=== PATIENT | female | born 1990 | race Two or more races ===

== ENCOUNTER 2018-10-09 14:09 | Outpatient (CLI) | payer BC ==
[2018-10-09 15:22] LABS: ADD MAN DIFF? NO
[2018-10-09 15:30] LABS: BASOPHILS % 0.5 % (0.0-2.0); EOSINOPHILS # 0.3 10^3/ul (0.0-0.5); EOSINOPHILS % 3.6 % (0.0-7.0); HEMATOCRIT 34.2 % (37.0-47.0); LYMPHOCYTES # 2.1 10^3/ul (0.8-2.9); LYMPHOCYTES % 27.1 % (15.0-51.0); MEAN CORPUSCULAR HEMOGLOBIN 26.3 pg (29.0-33.0); MEAN CORPUSCULAR HGB CONC 32.2 g/dl (32.0-37.0); MEAN CORPUSCULAR VOLUME 81.6 fl (82.0-101.0); MEAN PLATELET VOLUME 10.6 fl (7.4-10.4); MONOCYTE # 0.6 10^3/ul (0.3-0.9); MONOCYTES % 7.5 % (0.0-11.0); NEUTROPHIL # 4.6 10^3/ul (1.6-7.5); NEUTROPHILS % 60.2 % (39.0-77.0); PLATELET COUNT 279 10^3/UL (140-415); RED BLOOD COUNT 4.19 10^6/ul (4.20-5.40); RED CELL DISTRIBUTION WIDTH 15.6 % (11.5-14.5)
[2018-10-09 15:30] LABS: WHITE BLOOD COUNT 7.6 10^3/ul (4.8-10.8)
[2018-10-09 15:42] LABS: ALANINE AMINOTRANSFERASE 118 IU/L (13-69); ALBUMIN 3.5 g/dl (3.3-4.9); ALBUMIN/GLOBULIN RATIO 0.85; ALKALINE PHOSPHATASE 240 IU/L (42-121); AMYLASE 63 U/L (11-123); ANION GAP 10 (5-13); ASPARTATE AMINO TRANSFERASE 50 IU/L (15-46); BILIRUBIN,INDIRECT 0.4 mg/dl (0-1.1); BILIRUBIN,TOTAL 0.4 mg/dl (0.2-1.3); BLOOD UREA NITROGEN 8 mg/dl (7-20); CALCIUM 9.5 mg/dl (8.4-10.2); CARBON DIOXIDE 22 mmol/L (21-31); CHLORIDE 107 mmol/L (97-110); CREATININE 0.53 mg/dl (0.44-1.00); Estimated GFR > 60 mL/min (>60); GLUCOSE 109 mg/dl (70-220); LIPASE 42 U/L (23-300); POTASSIUM 3.6 mmol/L (3.5-5.1); SODIUM 139 mmol/L (135-144); TOTAL PROTEIN 7.6 g/dl (6.1-8.1)
[2018-10-09 16:42] LABS: ADD UMIC YES; UR ASCORBIC ACID NEGATIVE (NEGATIVE); UR BACTERIA FEW /HPF (NONE SEEN); UR BILIRUBIN (Dip) NEGATIVE (NEGATIVE); UR BLOOD (Dip) NEGATIVE (NEGATIVE); UR CLARITY SLIGHTLY CLOUDY (CLEAR); UR COLOR YELLOW (YELLOW); UR GLUCOSE (Dip) NEGATIVE (NEGATIVE); UR KETONES (Dip) 1+ mg/dL (NEGATIVE); UR LEUKOCYTE ESTERASE (Dip) 2+ Leu/ul (NEGATIVE); UR MUCUS FEW /HPF (NONE SEEN); UR NITRITE (Dip) NEGATIVE (NEGATIVE); UR RBC 1 /HPF (0-5); UR SPECIFIC GRAVITY (Dip) 1.019 (1.003-1.030); UR SQUAMOUS EPITHELIAL CELL FEW /HPF (FEW); UR TOTAL PROTEIN (Dip) NEGATIVE (NEGATIVE); UR UROBILINOGEN (Dip) NEGATIVE (NEGATIVE); UR WBC 6 /HPF (0-5)
[2018-10-09] MEDS: URSODIOL 300 MG CAP PO (17:27)
[2018-10-09] MEDS: LACTATED RINGER'S 1,000 ML IV (17:27)
[2018-10-09] MEDS: ONDANSETRON 4 MG INJ IV (18:46)
[2018-10-09] MEDS: DIPHENHYDRAMINE 50 MG CAP PO (19:29)
== END 2018-10-09 22:00 | disposition home or self-care (01) ==
LOC: OBT 14:09 → L-D 14:11 → OBT 22:00
DX: O21.2 Late vomiting of pregnancy (principal); O26.613 Liver and biliary tract disorders in pregnancy, third trimester; K83.1 Obstruction of bile duct; Z3A.34 34 weeks gestation of pregnancy
CPT/HCPCS: 76705; 76817; 76818; 80053; 81001; 82150; 83690; 85025

== ENCOUNTER 2018-10-16 23:21 | Outpatient (CLI) | payer BC ==
[2018-10-17] MEDS: DIPHENHYDRAMINE 25 MG CAP PO (00:22)
[2018-10-17] MEDS: BETAMET NA PHOS/AC(6 MG/ML) 2 ML INJ SYG IM (00:42)
== END 2018-10-17 01:20 | disposition home or self-care (01) ==
LOC: OBT 23:21 → L-D 23:21
DX: O26.613 Liver and biliary tract disorders in pregnancy, third trimester (principal); K83.1 Obstruction of bile duct; O24.414 Gestational diabetes mellitus in pregnancy, insulin controlled; Z3A.35 35 weeks gestation of pregnancy
CPT/HCPCS: 76818; 96372

== ENCOUNTER 2018-10-17 23:12 | Outpatient (CLI) | payer BC ==
[2018-10-18] MEDS: BETAMET NA PHOS/AC(6 MG/ML) 2 ML INJ SYG IM (00:48)
== END 2018-10-18 01:00 | disposition home or self-care (01) ==
LOC: OBT 10-18 01:00 → L-D 23:13
DX: O26.613 Liver and biliary tract disorders in pregnancy, third trimester (principal); K83.1 Obstruction of bile duct; Z3A.35 35 weeks gestation of pregnancy
CPT/HCPCS: J0702

== ENCOUNTER 2018-10-20 16:51 | Inpatient (IN) | payer BC ==
[2018-10-20] MEDS ORDERED: CARBOPROST 250 MCG INJ IM (17:30)
[2018-10-20] MEDS ORDERED: MISOPROSTOL 200 MCG TAB PR (17:30)
[2018-10-20] MEDS ORDERED: IBUPROFEN 600 MG TAB PO (17:30)
[2018-10-20] MEDS ORDERED: OXYTOCIN 30 UNITS/LR 500 ML IV ×2 (17:30)
[2018-10-20] MEDS ORDERED: METHYLERGONOVINE 0.2 MG INJ IM (17:30)
[2018-10-20] MEDS ORDERED: LIDOCAINE 1% (MPF) 30 ML INJ INJ (17:30)
[2018-10-20] MEDS: LACTATED RINGER'S 1,000 ML IV (18:43)
[2018-10-20 19:22] LABS: ADD MAN DIFF? NO
[2018-10-20 19:29] LABS: WHITE BLOOD COUNT 9.2 10^3/ul (4.8-10.8)
[2018-10-20 19:29] LABS: BASOPHIL # 0.1 10^3/ul (0.0-0.1); BASOPHILS % 0.7 % (0.0-2.0); EOSINOPHILS # 0.2 10^3/ul (0.0-0.5); EOSINOPHILS % 2.4 % (0.0-7.0); HEMATOCRIT 36.4 % (37.0-47.0); HEMOGLOBIN 11.2 g/dl (12.0-16.0); LYMPHOCYTES # 2.4 10^3/ul (0.8-2.9); LYMPHOCYTES % 26.3 % (15.0-51.0); MEAN CORPUSCULAR HEMOGLOBIN 25.4 pg (29.0-33.0); MEAN CORPUSCULAR HGB CONC 30.8 g/dl (32.0-37.0); MEAN CORPUSCULAR VOLUME 82.5 fl (82.0-101.0); MEAN PLATELET VOLUME 10.4 fl (7.4-10.4); MONOCYTE # 0.9 10^3/ul (0.3-0.9); MONOCYTES % 9.7 % (0.0-11.0); NEUTROPHIL # 5.5 10^3/ul (1.6-7.5); NEUTROPHILS % 59.3 % (39.0-77.0); NUCLEATED RED BLOOD CELLS% 0.2 /100WBC (0.0-0.0); PLATELET COUNT 287 10^3/UL (140-415); RED BLOOD COUNT 4.41 10^6/ul (4.20-5.40); RED CELL DISTRIBUTION WIDTH 15.7 % (11.5-14.5)
[2018-10-20 19:53] LABS: INR 0.93; PARTIAL THROMBOPLASTIN TIME 20.1 Sec (23.0-35.0); PROTIME 12.6 Sec (11.9-14.9)
[2018-10-20] MEDS: AMPICILLIN 2 GM/NS (PMX) 100 ML IV (20:14)
[2018-10-20] MEDS: MISOPROSTOL 50 MCG CAPSULE PO (20:14)
[2018-10-20 20:16] LABS: HEPATITIS B SURFACE ANTIGEN NEGATIVE (NEGATIVE)
[2018-10-20] MEDS: URSODIOL 300 MG CAP PO (21:13)
[2018-10-21] MEDS: AMPICILLIN 1 GM/NS (PMX) 50 ML IV ×7 (00:22→22:56)
[2018-10-21] MEDS: MISOPROSTOL 50 MCG CAPSULE PO ×6 (00:22→17:00)
[2018-10-21] MEDS: LACTATED RINGER'S 1,000 ML IV ×4 (02:53→19:41)
[2018-10-21] MEDS: BUTORPHANOL 2 MG INJ IV (05:13)
[2018-10-21] MEDS: URSODIOL 300 MG CAP PO ×3 (09:19→23:17)
[2018-10-21] MEDS ORDERED: FENTAnyl 2MCG/ML-ROPIV 0.2% 100 ML (12:23)
[2018-10-21] MEDS ORDERED: NALOXONE (0.4 MG/ML) INJ IV (12:30)
[2018-10-21] MEDS ORDERED: DIPHENHYDRAMINE 50 MG INJ IV (12:30)
[2018-10-21] MEDS ORDERED: ONDANSETRON 4 MG INJ IV (12:30)
[2018-10-21] MEDS: OXYTOCIN 30 UNITS/LR 500 ML IV (13:03)
[2018-10-21 19:22] LABS: RAPID PLASMA REAGIN NONREACTIVE (NR)
[2018-10-21] MEDS: FENTAnyl 2MCG/ML-ROPIV 0.2% 100 ML BAG EPI (22:09)
[2018-10-22] MEDS: AMPICILLIN 1 GM/NS (PMX) 50 ML IV (03:00)
[2018-10-22] MEDS: MINERAL OIL LIGHT 10 ML VIAL TOP (03:20)
[2018-10-22] MEDS: OXYTOCIN 30 UNITS/LR 500 ML IV (03:38)
[2018-10-22] MEDS: LACTATED RINGER'S 1,000 ML IV* ×2 (06:08→07:21)
[2018-10-22] MEDS ORDERED: CARBOPROST 250 MCG INJ IM (06:30)
[2018-10-22] MEDS ORDERED: MISOPROSTOL 200 MCG TAB PR (06:30)
[2018-10-22] MEDS ORDERED: OXYTOCIN 30 UNITS/LR 500 ML IV (06:30)
[2018-10-22] MEDS ORDERED: METHYLERGONOVINE 0.2 MG INJ IM (06:30)
[2018-10-22] MEDS: WITCH HAZEL/GLYCERIN PAD PR (08:11)
[2018-10-22] MEDS: DIBUCAINE 1% 30 GM OINT TOP ×2 (08:12→20:54)
[2018-10-22] MEDS: BENZOCAINE 20% 56 ML SPRAY TOP ×2 (08:12→20:54)
[2018-10-22] MEDS: SENNA/DOCUSATE NA (8.6MG/50MG) TAB PO ×2 (08:44→20:54)
[2018-10-22] MEDS: HYDROCODONE/APAP (5/325) TAB PO (10:40)
[2018-10-22] MEDS: IBUPROFEN 600 MG TAB PO ×3 (12:02→23:40)
[2018-10-23] MEDS: HYDROCODONE/APAP (5/325) TAB PO ×3 (03:33→23:23)
[2018-10-23] MEDS: IBUPROFEN 600 MG TAB PO ×4 (05:20→23:23)
[2018-10-23] MEDS: WITCH HAZEL/GLYCERIN PAD PR ×2 (08:24→21:25)
[2018-10-23] MEDS: BENZOCAINE 20% 56 ML SPRAY TOP ×2 (08:24→21:24)
[2018-10-23] MEDS: SENNA/DOCUSATE NA (8.6MG/50MG) TAB PO ×2 (08:24→21:24)
[2018-10-23 08:29] LABS: ADD MAN DIFF? NO
[2018-10-23 08:36] LABS: BASOPHIL # 0.1 10^3/ul (0.0-0.1); BASOPHILS % 0.6 % (0.0-2.0); EOSINOPHILS # 0.2 10^3/ul (0.0-0.5); HEMATOCRIT 32.4 % (37.0-47.0); HEMOGLOBIN 9.8 g/dl (12.0-16.0); LYMPHOCYTES # 3.2 10^3/ul (0.8-2.9); LYMPHOCYTES % 26.3 % (15.0-51.0); MEAN CORPUSCULAR HEMOGLOBIN 25.3 pg (29.0-33.0); MEAN CORPUSCULAR HGB CONC 30.2 g/dl (32.0-37.0); MEAN CORPUSCULAR VOLUME 83.7 fl (82.0-101.0); MEAN PLATELET VOLUME 10.7 fl (7.4-10.4); NEUTROPHIL # 7.5 10^3/ul (1.6-7.5); NEUTROPHILS % 62.2 % (39.0-77.0); PLATELET COUNT 276 10^3/UL (140-415); RED BLOOD COUNT 3.87 10^6/ul (4.20-5.40); RED CELL DISTRIBUTION WIDTH 15.9 % (11.5-14.5)
[2018-10-23 08:36] LABS: WHITE BLOOD COUNT 12.1 10^3/ul (4.8-10.8)
[2018-10-24] MEDS: ACETAMINOPHEN 325 MG TAB PO (04:29)
[2018-10-24] MEDS: HYDROCODONE/APAP (5/325) TAB PO (04:30)
[2018-10-24] MEDS: IBUPROFEN 600 MG TAB PO ×2 (05:44→12:49)
[2018-10-24] MEDS: SENNA/DOCUSATE NA (8.6MG/50MG) TAB PO (09:06)
[2018-10-24] MEDS: WITCH HAZEL/GLYCERIN PAD PR (09:06)
[2018-10-24] MEDS: BENZOCAINE 20% 56 ML SPRAY TOP (09:06)
[2018-10-24] MEDS: DIPHTH/TET/ACEL PERTUSS (ADULT) 0.5 ML VIAL IM* (14:29)
== END 2018-10-24 19:00 | disposition home or self-care (01) | DRG 805 ==
LOC: PP1 10-22 05:44 → L-D 16:51
PROVIDERS: Obstetrics & Gynecology
PROC: 10E0XZZ Delivery of Products of Conception, External Approach (ICD-10-PCS; principal; 2018-10-22)
PROC: 0KQM0ZZ Repair Perineum Muscle, Open Approach (ICD-10-PCS; 2018-10-22)
PROC: 3E033VJ Introduction of Other Hormone into Peripheral Vein, Percutaneous Approach (ICD-10-PCS; 2018-10-22)
DX: O60.13X0 Preterm labor second trimester with preterm delivery third trimester, not applicable or unspecified (principal); K83.1 Obstruction of bile duct; Z37.0 Single live birth; O26.62 Liver and biliary tract disorders in childbirth; O99.214 Obesity complicating childbirth; E66.01 Morbid (severe) obesity due to excess calories; Z3A.36 36 weeks gestation of pregnancy
CPT/HCPCS: 62322; 76815; 76818; 85025; 85610; 85730; 86592; 86850; 86900; 86901; 87340; 90715; 99464

== ENCOUNTER 2018-11-11 16:41 | Emergency (ER) | payer BC ==
[2018-11-11] MEDS: IBUPROFEN 800 MG TAB PO (17:46)
== END 2018-11-11 18:05 | disposition home or self-care (01) ==
LOC: E/R 16:41
DX: N61.0 Mastitis without abscess (principal)
CPT/HCPCS: 99283